=== PATIENT | male | born 1970 | race Caucasian/White ===

== ENCOUNTER 2020-11-06 12:33 | Emergency (ER) | payer BC, SELFPAY ==
[2020-11-06 12:35] VITALS: BP 120/83; PULSE 78; RESP 18; TEMP 36.7; O2SAT 99; BMI 40.6
--- NOTE | 2020-11-06 12:36 | XR_ITS ---
PROCEDURE: XR CHEST PORTABLE CLINICAL HISTORY: paresthesia COMPARISON: CR,CT CXR CHEST(2 VIEWS-NOT PORTABLE) from 12/13/2012 FINDINGS: The cardiomediastinal silhouette and pulmonary vascularity are within normal limits. The lungs are clear without infiltrates, suspicious nodules, or pleural effusions. No acute bony abnormalities. IMPRESSION: No acute finding Dictated by: Rodrigo Gasca MD 11/06/2020 13:05 Rodrigo Gasca MD in [place] 11/06/2020 13:05
--- NOTE | 2020-11-06 12:36 | HMH.EDGENADL ---
ED Disposition Clinical Impression: Hypertensive urgency, Perioral numbness, Paresthesia of left arm and leg Disposition: Home, Self-Care Condition on Discharge: Good Referrals: Eve Jama MD [Primary Care Provider] - 11/07/20 (Call for follow-up appointment) Time of Disposition: 15:28 - Critical Care Critical Care Time: No Attestation: On , the high probability of a clinically significant, sudden or life threatening deterioration of the following system(s) required my full and direct attention, intervention and personal management. The time I documented below is in addition to time spent performing reported procedures but includes the following listed in this critical care notation. Medical Decision Making - Medical Records Medical records reviewed: Yes: I reviewed the patient's medical records. - Percy Inquiry Pt receiving controlled substance: No Vital Signs: 11/06/20 12:35 11/06/20 13:53 11/06/20 13:54 Temperature 98.0 F Temperature Source Oral Pulse Rate 69 76 Pulse Rate [Right] 78 Respiratory Rate 18 18 Blood Pressure 104/76 L 100/72 L Blood Pressure [Right Arm] 120/83 Blood Pressure Mean Blood Pressure Mean [Right Arm] 95 Blood Pressure Source Automatic Cuff 02 Sat by Pulse Oximetry 99 96 97 Oxygen Delivery Method Room Air 11/06/20 13:55 11/06/20 14:15 Temperature Temperature Source Pulse Rate 74 65 Pulse Rate [Right] Respiratory Rate 18 18 Blood Pressure 100/72 L 110/76 Blood Pressure [Right Arm] Blood Pressure Mean 79 Blood Pressure Mean [Right Arm] Blood Pressure Source 02 Sat by Pulse Oximetry 97 95 Oxygen Delivery Method - Lab Data Lab results reviewed: Yes: I reviewed the patient's lab results. Lab Results 11/06/20 12:48: WBC 7.5, RBC 5.32, Hgb 15.8, Hct 46.9, MCV 88.1, MCH 29.7, MCHC 33.8, RDW 13.5, Plt Count 205, MPV 9.8, Neut % (Auto) 63.9, Lymph % (Auto) 24.6, [place] % (Auto) 8.0, Eos % (Auto) 3.0, Baso % (Auto) 0.7, Neut # (Auto) 4.8, Lymph # (Auto) 1.9, [place] # (Auto) 0.6, Eos # (Auto) 0.2, Baso # (Auto) 0.1 11/06/20 12:48: Sodium 140, Potassium 3.9, Chloride 103, Carbon Dioxide 27, Anion Gap 13.9, BUN 14, Creatinine 1.20, Estimated GFR 64, Est GFR ( Amer) 78, Glucose 102 H, Calcium 9.7, Total Bilirubin 0.6, AST 38, ALT 27, Alkaline Phosphatase 73, Troponin I < 0.01, Total Protein 8.3 H, Albumin 4.9, Globulin 3.4 H, Albumin/Globulin Ratio 1.4 Result diagrams: 11/06/20 12:48 11/06/20 12:48 Orders (Tests/Meds): ORDERS Category Date Time Status Troponin I Q3H Lab 11/06/20 15:45 Ordered Troponin I Q3H Lab 11/06/20 18:45 Ordered - Radiology Data #1 Image(s): Chest Image Reviewed: Yes I have reviewed radiologist's interpretation Preliminary Findings: Normal/NAD - CT Data CT Scan: Head Time Received: 13:[address] Reviewed: Yes: I have reviewed the patient's CT results, I have viewed the radiologist's interpretation Preliminary Findings: Normal/NAD Findings Narrative: No acute intracranial pathology is appreciated. Patient is noted to have dense calcification of the left vertebral artery. - ECG Data Tracing #1 Normal sinus rhythm, 60 bpm, no ST depression or elevation, no ectopy, normal intervals. ECG initial impression date: 11/06/20 ECG initial impression time: 13:25 Medical Decision Narrative: 50yo M evaluated for hypertensive urgency and left-sided paresthesia. Patient's blood pressure is improved without any intervention. His paresthesias have improved at this time as well. Patient notes perioral numbness as well as his left-sided symptoms. CT scan is ordered and unremarkable. EKG is reviewed as above. Chest x-ray negative. Blood work is unremarkable. All results were discussed with patient at bedside. Encouraged patient follow with his PCP and likely vascular surgery referral secondary to his vertebral artery stenosis. In light of the patient's improved condition, he is appropriate stable for d
--- NOTE | 2020-11-06 12:54 | CT_ITS ---
PROCEDURE: CT HEAD/BRAIN WO CON CLINICAL INDICATION: stroke protocol Left arm numbness COMPARISON: No exams were available for comparison TECHNIQUE: Axial images obtained. All CT scans at the facility use one or more dose reduction, viz: automated exposure control, ma/kV adjustment per patient size (including targeted exams where dose is matched to indication, i.e. head), or iterative reconstruction technique. FINDINGS: No midline shift, mass effect, intracranial hemorrhage, hydrocephalus, or extra-axial fluid collection is evident. There is dense calcification of the left vertebral artery the calvarium has an unremarkable appearance. No mastoid effusion. There is severe opacification of the right ethmoid sinus and mild mucosal thickening of the right maxillary sinus. IMPRESSION: 1. No acute intracranial findings. 2. Dense calcification of the left vertebral artery. 3. Right ethmoid and maxillary sinus disease Dictated by: Rodrigo Gasca MD 11/06/2020 13:04 Rodrigo Gasca MD in [place] 11/06/2020 13:04
[2020-11-06 13:01] LABS: Basophils # 0.1 K/mm3 (0-0.2); Basophils % 0.7 % (0.1-2.0); Eosinophils # 0.2 K/mm3 (0.0-0.4); Hematocrit 46.9 % (42.0-52.0); Hemoglobin 15.8 g/dL (14.1-18.0); Lymphocytes # 1.9 K/mm3 (0.7-4.5); Lymphocytes % 24.6 % (10-50); Mean Corpuscular HGB Conc 33.8 g/dL (31.8-35.4); Mean Corpuscular Hemoglobin 29.7 pg (27.0-31.2); Mean Corpuscular Volume 88.1 fl (80-94); Mean Platelet Volume 9.8 fl (7.4-10.4); Monocytes # 0.6 K/mm3 (0.1-1.0); Neutrophils # 4.8 K/mm3 (1.8-7.8); Neutrophils % 63.9 % (37.0-80.0); Platelet Count 205 K/mm3 (142-424); Red Blood Count 5.32 M/mm3 (4.60-6.20); Red Cell Distribution Width 13.5 % (11.5-17.5); White Blood Count 7.5 K/mm3 (4.8-10.8)
[2020-11-06 13:02] LABS: Chloride 103 mmol/L (98-107); Potassium 3.9 mmoL/L (3.5-5.1); Sodium 140 mmol/L (136-145)
[2020-11-06 13:04] LABS: Alanine Aminotransferase 27 U/L (12-78); Aspartate Amino Transferase 38 U/L (17-59); Blood Urea Nitrogen 14 mg/dl (9-20); Estimated Glomerular Filt Rate 64 ml/min (>60); GFR (African American) 78 ML/MIN (>60)
[2020-11-06 13:05] LABS: Albumin Level 4.9 g/dl (3.5-5.0); Albumin/Globulin Ratio 1.4 (1.1-1.8); Alkaline Phosphatase 73 U/L (38-126); Anion Gap 13.9 mEq/L (5-15); Bilirubin,Total 0.6 mg/dl (0.2-1.3); Calcium 9.7 mg/dl (8.4-10.2); Carbon Dioxide 27 mmol/L (22.0-30.0); Globulin 3.4 g/dL (1.3-3.2); Glucose 102 mg/dl (74-100); Total Protein,Serum 8.3 g/dl (6.3-8.2)
--- NOTE | 2020-11-06 13:18 | ECG_ITS ---
APPROVED REPORT Exam: Resting ECG HR:68 bpm ECG Measurements Heart Rate 68 AXES NC 162 P 35 QRSd 84 QRS 13 QT 400 T 22 QTc 425 Conclusion Normal sinus rhythm Cannot rule out Anterior infarct, age undetermined Abnormal ECG Electronically signed by : Jaiden Bryson, 11/09/2020 14:00:24
[2020-11-06 13:19] LABS: Troponin I < 0.01 ng/ml (0.00-0.034)
[2020-11-06 13:53] VITALS: BP 104/76; PULSE 69; RESP 18; O2SAT 96
[2020-11-06 13:54] VITALS: BP 100/72; PULSE 76; O2SAT 97
[2020-11-06 13:55] VITALS: BP 100/72; PULSE 74; RESP 18; O2SAT 97
[2020-11-06 14:15] VITALS: BP 110/76; PULSE 65; RESP 18; O2SAT 95
[2020-11-06 16:15] VITALS: BP 115/85; PULSE 71; RESP 18; TEMP 36.8; O2SAT 98
[2020-11-06 16:17] LABS: Troponin I < 0.01 ng/ml (0.00-0.034)
== END 2020-11-06 16:10 | disposition home or self-care (01) ==
PROVIDERS: Emergency Provider Family Medicine; PCP Family Medicine
DX: I16.0 Hypertensive urgency (principal); Z86.73 Personal history of transient ischemic attack (TIA), and cerebral infarction without residual deficits; Z87.891 Personal history of nicotine dependence; Z79.899 Other long term (current) drug therapy
CPT/HCPCS: 36415; 70450; 71045; 80053; 84484; 85025; 93005; 99282

== ENCOUNTER → 2020-11-14 10:03 | Outpatient (CLI) | payer BC, SELFPAY ==
--- NOTE | 2020-11-14 | CA_ITS ---
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/CHUY Laterality: Bilateral Study Quality: Excellent Indications: Left sided numbness in arm and lip with tingling Risk Factors Hypertension: Hyperlipidemia Stroke Hx-stroke 2004 Doppler Spectral Velocity Analysis ECA (R) 92.80/20.20 cm/s ECA (L) 67.70/18.00 cm/s dICA (R) 53.10/23.90 cm/s dICA (L) 58.30/24.80 cm/s Celeste (R) 53.10/10.50 cm/s [place] (L) 60.80/22.30 cm/s pICA (R) 49.40/22.40 cm/s pICA (L) 60.00/22.30 cm/s dCCA (R) 95.10/35.10 cm/s dCCA (L) 76.30/26.20 cm/s pCCA (R) 102.70/28.90 cm/s pCCA (L) 77.80/26.90 cm/s Vert (R) 38.90/12.00 cm/s Vert (L) 39.70/15.00 cm/s Findings Duplex evaluation demonstrates stenosis of the right proximal internal carotid artery <20% with PSV <140 cm/sec, EDV <100 cm/sec, and IC/CC Ratio <4.0.Duplex evaluation demonstrates stenosis of the left proximal internal carotid artery <20% with PSV <140 cm/sec, EDV <100 cm/sec, and IC/CC Ratio <4.0. Bilateral Internal carotid arteries measure greater than 0.83cm with low velocities and waveforms throughout. Duplex evaluation demonstrates antegrade flow of the bilateral Vertebral Arteries. Conclusion Duplex evaluation demonstrates stenosis of the right proximal internal carotid artery <20% with PSV <140 cm/sec, EDV <100 cm/sec, and IC/CC Ratio <4.0.Duplex evaluation demonstrates stenosis of the left proximal internal carotid artery <20% with PSV <140 cm/sec, EDV <100 cm/sec, and IC/CC Ratio <4.0. Duplex evaluation demonstrates antegrade flow of the bilateral Vertebral Arteries. Electronically signed by : Rodrigo Gasca MD 11/14/2020 13:14:31
--- NOTE | 2020-11-14 10:11 | MR_ITS ---
PROCEDURE: MR HEAD/BRAIN WO/W CON CLINICAL INDICATION: TIA Hypertension, numbness on left side of body and face COMPARISON: CT CT HEAD/BRAIN WO CON from 11/06/2020 TECHNIQUE: Routine multiplanar multi echo sequences are performed without and with gadolinium enhancement. FINDINGS: No midline shift, mass effect, intracranial hemorrhage, hydrocephalus, or acute infarction is evident. The cerebellopontine angle cerebellum, midbrain and brainstem have an unremarkable appearance. No enhancing lesion evident.. A small T2 white matter hyperintensity is present in the left frontal lobe nonspecific. The pituitary, optic chiasm, corpus callosum, and craniocervical junction have an unremarkable appearance. There is minimal mucosal thickening of the paranasal sinuses. No mastoid effusion. IMPRESSION: Essentially negative MRI of the brain without and with contrast. Small non-specific T2 white matter hyperintensity is present in the left frontal lobe at 3 mm and may be due to small gliotic focus without enhancement or restricted diffusion. No acute infarction apparent Dictated by: Rodrigo Gasca MD 11/14/2020 13:28 Rodrigo Gasca MD in [place] 11/14/2020 13:28
== END ==
PROVIDERS: PCP Family Medicine; Visit Provider Family Medicine
DX: G45.9 Transient cerebral ischemic attack, unspecified (principal)
CPT/HCPCS: 70553; 93880; A9576

== ENCOUNTER 2022-05-13 15:22 | Day surgery (SDC) | payer BC, SELFPAY ==
[2022-05-13] VITALS (10 sets, daily range): BP systolic 124–165; BP diastolic 78–101; PULSE 69–92; RESP 16–20; TEMP 36.4–36.7; O2SAT 96–99; BMI 40.6
--- NOTE | 2022-05-13 15:30 | PC.NURSE ---
ED MD AT BEDSIDE FOR EVALUATION
--- NOTE | 2022-05-13 15:32 | XR_ITS ---
FINAL REPORT TECHNIQUE: Single view chest CLINICAL HISTORY: food bolus-- feels like something is stuck in throat COMPARISON: 11/06/2020 FINDINGS: A single view of the chest was obtained. Patient is status post median sternotomy. The heart and mediastinum are within normal limits. There is mild right base atelectasis or scarring. There is no pneumothorax. Osseous structures are unremarkable. IMPRESSION: Mild right base atelectasis or scarring. Reviewed, Interpreted and Dictated by Oneal Hartley III, MD Transcribed by Mona Lamar Authenticated and [facility]
--- NOTE | 2022-05-13 15:32 | HMH.EDGENADL ---
Discharge Plan Disposition Patient Disposition: Still a Patient Condition: Fair Chief Complaint: PAIN Referrals Follow up/Referrals: Eve Jama MD [Primary Care Provider] - See instructions Clinical Impressions Clinical Impression: Esophageal obstruction due to food impaction Discharge ED Provider: Cristiano Salgado General Adult HPI General Chief complaint: PAIN Stated complaint: Something stuck in throat while eating Time Seen by Provider: 05/13/22 15:40 History of Present Illness HPI narrative: Patient is a 51-year-old male who presents with concern for food bolus. Patient states that he was eating some chicken earlier today when he felt like something got stuck. He says that since then he was tried to drink some water but he feels like he is just been throwing everything up. He says he can feels like something is stuck. This happened approximately an hour prior to arrival. He does feel little bit nauseous. Pain does not radiate from that area. Denies any shortness of breath. Related Data Allergies Allergy/AdvReac Type Severity Reaction Status Date / Time No Known Allergies Allergy Unverified 07/15/17 14:29 [facility], [facility] Social History (Updated 05/13/22 @ 18:09 by Oneal Gorman MD) Smoking Status: Former smoker alcohol intake: current current occupational status: employed Travel in the last 8 weeks: None ROS Obtained: Yes All systems reviewed & no additional complaints except as documented A 14 point review of system was obtained and otherwise negative except per HPI Physical Exam General General appearance: alert and in no apparent distress Head Head exam: atraumatic, normocephalic and normal inspection Eye Eye exam: Present normal appearance, PERRL and EOMI ENT ENT exam: Present normal exam, normal oropharynx, mucous membranes moist, TM's normal bilaterally and normal external ear exam Neck Neck exam: Present normal inspection, full ROM and trachea midline; Absent meningismus or lymphadenopathy Chest Chest inspection: Present normal inspection and symmetric chest wall rise; Absent tenderness Respiratory Respiratory exam: Present normal lung sounds bilaterally; Absent respiratory distress Cardiovascular Cardiovascular exam: Present regular rate and normal rhythm; Absent JVD Abdominal Exam Abdominal exam: Present soft and normal bowel sounds; Absent distention, tenderness or guarding Extremities Exam Extremities exam: Present normal inspection, full ROM and normal capillary refill; Absent calf tenderness Back Exam Back exam: Present normal inspection; Absent tenderness Neurological Exam Neurological exam: Present alert and oriented X3 Psychiatric Psychiatric exam: Present normal affect and normal mood Skin Skin exam: Present warm, dry, intact and normal color Lymphatic Lymphatic Findings: no adenopathy Medical Decision Making Percy Inquiry Pt receiving controlled substance: No Vital Signs: 05/13/22 15:23 05/13/22 16:28 Temperature 97.8 F Temperature Source Oral Pulse Rate 80 Pulse Rate [Radial] 84 Respiratory Rate 20 Blood Pressure 130/92 H Blood Pressure [Right Arm] 129/101 H Blood Pressure Mean [Right Arm] 110 Blood Pressure Source [Right Arm] Automatic Cuff Blood Pressure Position [Right Arm] Sitting 02 Sat by Pulse Oximetry 99 96 Oxygen Delivery Method Room Air Room Air Lab Data Lab Results 05/13/22 17:35: WBC 10.0, RBC 5.40, Hgb 16.4, Hct 50.0, MCV 92.6, MCH 30.3, MCHC 32.8, RDW 13.5, Plt Count 241, MPV 9.3, Neut % (Auto) 76.2, Lymph % (Auto) 14.2, [place] % (Auto) 5.3, Eos % (Auto) 2.8, Baso % (Auto) 1.5, Neut # (Auto) 7.7, Lymph # (Auto) 1.4, [place] # (Auto) 0.5, Eos # (Auto) 0.3, Baso # (Auto) 0.2 05/13/22 17:35: Sodium 142, Potassium 4.3, Chloride 100, Carbon Dioxide 29, Anion Gap 17.3 H, BUN 16, Creatinine 1.10, Estimated Creat Clear 155, Estimated GFR 71, Est GFR ( Amer) 86, Glucose 99, Calcium 9.4, Total Bilirubin 0.5, AST 40, ALT 40, Mary
--- NOTE | 2022-05-13 15:34 | PC.NURSE ---
PT PROVIDED GINGERALE PER MD
--- NOTE | 2022-05-13 16:18 | PC.NURSE ---
ROUNDED ON PT, REPORTS NO CHANGE. NOTIFIED
--- NOTE | 2022-05-13 17:23 | PC.NURSE ---
SPOKE WITH PT HE IS STILL NOT ABLE TO KEEP ANYTHING DOWN HIS SALIVA CONTINUES TO COME UP!!! DR JACKMAN PAGED
--- NOTE | 2022-05-13 17:35 | PC.NURSE ---
Dr Salgado spoke with Dr Gorman, he advised to call OR team in for scope for food bolus, carla advised
--- NOTE | 2022-05-13 17:53 | PC.NURSE ---
PT PALCED IN GOWN, WARM BLANKET PROVIDED. CONSENT SIGNED FOR SURGERY
[2022-05-13 17:58] LABS: Basophils # 0.2 K/mm3 (0-0.2); Basophils % 1.5 % (0.1-2.0); Eosinophils # 0.3 K/mm3 (0.0-0.4); Eosinophils % 2.8 % (0.1-12.0); Hemoglobin 16.4 g/dL (14.1-18.0); Lymphocytes # 1.4 K/mm3 (0.7-4.5); Lymphocytes % 14.2 % (10-50); Mean Corpuscular HGB Conc 32.8 g/dL (31.8-35.4); Mean Corpuscular Hemoglobin 30.3 pg (27.0-31.2); Mean Corpuscular Volume 92.6 fl (80-94); Mean Platelet Volume 9.3 fl (7.4-10.4); Monocytes # 0.5 K/mm3 (0.1-1.0); Monocytes % 5.3 % (1.7-9.3); Neutrophils # 7.7 K/mm3 (1.8-7.8); Neutrophils % 76.2 % (37.0-80.0); Platelet Count 241 K/mm3 (142-424); Red Cell Distribution Width 13.5 % (11.5-17.5)
--- NOTE | 2022-05-13 17:59 | PC.NURSE ---
dr. chowdhury at BS
--- NOTE | 2022-05-13 17:59 | PC.NURSE ---
DR. JACKMAN AT BEDSIDE
[2022-05-13 18:03] LABS: Alanine Aminotransferase 40 U/L (12-78); Albumin Level 4.7 g/dl (3.5-5.0); Albumin/Globulin Ratio 1.2 (1.1-1.8); Alkaline Phosphatase 83 U/L (38-126); Anion Gap 17.3 mEq/L (5-15); Aspartate Amino Transferase 40 U/L (17-59); Bilirubin,Total 0.5 mg/dl (0.2-1.3); Blood Urea Nitrogen 16 mg/dl (9-20); Calcium 9.4 mg/dl (8.4-10.2); Carbon Dioxide 29 mmol/L (22.0-30.0); Chloride 100 mmol/L (98-107); Creatinine Clearance Estimated 155 mL/min (50-200); Estimated Glomerular Filt Rate 71 ml/min (>60); GFR (African American) 86 ML/MIN (>60); Globulin 3.8 g/dL (1.3-3.2); Glucose 99 mg/dl (74-100); Potassium 4.3 mmoL/L (3.5-5.1); Sodium 142 mmol/L (136-145); Total Protein,Serum 8.5 g/dl (6.3-8.2)
--- NOTE | 2022-05-13 18:05 | PC.NURSE ---
173: Spoke with David Roy CRNA to notify him of Dr. Gorman's request for EGD. 174: Spoke with Sue Pizano RN to notify her of Dr. Gorman's request for EGD. 174: Sue Pizano RN spoke with Cayetano Barreto technical service representative and notified her of Dr. Gorman's request for EGD.
--- NOTE | 2022-05-13 18:06 | P.CONS_ITS ---
History of Present Illness *Admission Date: 05/13/22 *Reason for visit:: Unable to swallow *History of present illness: Patient is a 51-year-old male who has a history of some heartburn type symptoms and has had occasional dysphagia which has been self-limited. However, today he was eating chicken at approximately 12;15 p.m. and felt as though it became stuck. He has been unable to swallow secretions. He presented to the emergency department and symptoms were refractory to nonsurgical management. Surgical consultation was obtained. [facility] Social History Smoking Status: Former smoker alcohol intake: current current occupational status: employed Travel in the last 8 weeks: None Meds Home Medications and Allergies New Prescriptions to Start Prescriptions: Allergies Allergy/AdvReac Type Severity Reaction Status Date / Time No Known Allergies Allergy Unverified 07/15/17 14:29 Exam (Inpt) Vital signs and Labs for Last 24 Hours: Temp Pulse Resp BP Pulse Ox 97.8 F 80 20 130/92 H 96 05/13/22 15:23 05/13/22 16:28 05/13/22 15:23 05/13/22 16:28 05/13/22 16:28 Laboratory Results - last 24 hr 05/13/22 17:35: WBC 10.0, RBC 5.40, Hgb 16.4, Hct 50.0, MCV 92.6, MCH 30.3, MCHC 32.8, RDW 13.5, Plt Count 241, MPV 9.3, Neut % (Auto) 76.2, Lymph % (Auto) 14.2, [place] % (Auto) 5.3, Eos % (Auto) 2.8, Baso % (Auto) 1.5, Neut # (Auto) 7.7, Lymph # (Auto) 1.4, [place] # (Auto) 0.5, Eos # (Auto) 0.3, Baso # (Auto) 0.2 I & O for Labs for Last 24 Hours: Intake & Output 05/11/22 05/12/22 05/13/22 05/14/22 11:59 11:59 11:59 11:59 Weight 300 lb Constitutional: no acute distress Comment:: Patient sitting on the side of the stretcher retching spitting up secretions. Head: Present normocephalic Neck: Present normal inspection Respiratory: Present able to speak in complete sentences Cardiac: Present Reg Rate and Rhythm GI: Present soft Rectal (male): Present deferred Results Labs Result diagrams: 05/13/22 17:35 Labs: Laboratory Results - last 24 hr 05/13/22 17:35: WBC 10.0, RBC 5.40, Hgb 16.4, Hct 50.0, MCV 92.6, MCH 30.3, MCHC 32.8, RDW 13.5, Plt Count 241, MPV 9.3, Neut % (Auto) 76.2, Lymph % (Auto) 14.2, [place] % (Auto) 5.3, Eos % (Auto) 2.8, Baso % (Auto) 1.5, Neut # (Auto) 7.7, Lymph # (Auto) 1.4, [place] # (Auto) 0.5, Eos # (Auto) 0.3, Baso # (Auto) 0.2 Assessment and Plan *Assessment and plan (1) Esophageal obstruction due to food impaction: Status: Acute Category: Medical Code(s): K22.2 - Esophageal obstruction; T18.128A - Food in esophagus causing other injury, initial encounter Plan Plan to proceed with urgent endoscopy
--- NOTE | 2022-05-13 18:06 | PC.NURSE ---
pt heaving and spitting up some small pieces of food, pt tried to drink again and it still felt like it was lodged, pt given wet washcloth, Dr chowdhury came in at that time and spoke with pt
--- NOTE | 2022-05-13 18:48 | HMH.SCOPE ---
Procedure: Date: 05/13/22 Patient Date of :: 1970 Procedure Performed:: Esophagogastroduodenoscopy Indications:: Patient is a 51-year-old male who has had a history of reflux symptoms and recently some self-limited dysphagia type symptoms where he feels food becomes stuck. However, today on 05/13 he was found to approximately 12:15 PM esophageal obstruction. His symptoms persisted and he was seen in the emergency department with symptoms. He was consulted and plan was made for EGD. Performing Provider:: Oneal Gorman MD Referring Provider:: SELENE GONZALEZ Sedation:: MAC SEDATION Procedure:: Patient was taken to the endoscopy procedure room. He was positioned in lateral decubitus position. Adequate intravenous sedation was achieved with anesthesia titration of propofol. Olympus endoscope was inserted via the oropharynx. Esophagus was cannulated. Endoscope was advanced. Salivary secretions were noted with evidence of food impaction in distal esophagus at GE junction. However, endoscopic lens irrigation was suboptimal. Endoscope was withdrawn and replaced with alternate endoscope which was reinserted. At this time there was noted to be a few food particles in the distal esophagus. Food impaction had spontaneously passed into the gastric lumen. There was evidence erosive esophagitis focally at the gastroesophageal junction and some exudate. There was a mucosal tear noted where the food was previously impacted but this appeared superficial. Endoscope was able to be advanced into the stomach and this was desufflated and the endoscope was withdrawn. Findings:: Evidence of resolved food impaction GE junction at 42 cm Focal erosive esophagitis Recommendations:: Patient should maintain proton pump inhibitors. I will have him on limited to clear liquid diet until 05/15/2022 then very soft diet. Likely repeat upper endoscopy electively for better evaluation once the inflammation healed. Complications:: None immediately apparent Estimated blood obtained (mL): 0
--- NOTE | 2022-05-13 18:57 | P.PN_ITS ---
[facility] Social History (Updated 05/13/22 @ 18:09 by Oneal Gorman MD) Smoking Status: Former smoker alcohol intake: current substance use type: denies use current occupational status: employed Travel in the last 8 weeks: None [facility] Anesthesia Checklist Patient Identification Patient Identification: Verbal (Name & ) Structural Data Admitted From: Home Planned Operative Procedure/s: egd Consent for Planned Operative Procedure(s) Verified: Yes NPO Status Verified Time NPO: 12:30 Airway Assessment C-Spine Mobility Assessed: Yes TMJ Mobility Assessed: Yes Dentition: Good Dentition Neurological Assessment Level of Consciousness: Awake, Alert and Appropriate Anesthesia Plan Anesthesia Risk discussed: Yes Anesthesia Plan: Verified ASA Class: II Anesthesia Type: MAC
== END 2022-05-13 19:29 | disposition home or self-care (01) ==
LOC: ER 18:28 → SDC 18:36
PROVIDERS: Emergency Provider Student in an Organized Health Care Education/Training Program; PCP Family Medicine; Visit Provider Surgery
PROC: 0DJ08ZZ Inspection of Upper Intestinal Tract, Via Natural or Artificial Opening Endoscopic (ICD-10-PCS; CPT 43235; principal; 2022-05-13 18:00)
DX: T18.128A Food in esophagus causing other injury, initial encounter (principal); K22.2 Esophageal obstruction; Z79.899 Other long term (current) drug therapy
CPT/HCPCS: 43235; 71045; 80053; 85025; J1610

== ENCOUNTER 2022-07-13 10:32 | Emergency (ER) | payer BC, SELFPAY ==
[2022-07-13 11:21] VITALS: BP 148/94; PULSE 96; RESP 16; TEMP 37.1; O2SAT 99; BMI 38.5
[2022-07-13 11:31] LABS: UTC Influenza A Antigen Negative (Negative)
[2022-07-13 11:32] LABS: UTC Influenza B Antigen Negative (Negative)
--- NOTE | 2022-07-13 11:53 | EXP.UTC ---
Discharge Plan Disposition Patient Disposition: Home, Self-Care Condition: Good Prescriptions Prescriptions: New benzonatate 100 mg capsule 100 mg PO TID PRN (Reason: cough) Qty: 30 0RF azithromycin 250 mg tablet See Rx Instructions .ROUTE .COMPLEX Qty: 6 0RF Rx Instructions: For 250 mg dose pack: take 500 mg today (day 1), then 250 mg for 4 days (days 2-5). Hold cholesterol medication while taking. No Action valsartan-hydrochlorothiazide 160-12.5 mg tablet 1 tab PO DAILY Referrals Follow up/Referrals: Eve Jama MD [Primary Care Provider] - See instructions Clinical Impressions Clinical Impression: Upper respiratory tract infection Instructions Patient Instructions: DI for Viral Upper Respiratory Infection -- Adult Discharge ED Provider: Connie Brooks [facility] HPI General Stated complaint: back pain, congestion,cough,fever Mode of Arrival: Ambulatory Source of Information: Patient Limitations: No Limitations Time Seen by Provider: 07/13/22 11:53 Description of Symptoms (Recalled from Triage Doc. by RN): pt comes in with c/o back pain, ongoing for many weeks. fever, cough, headache, chills began yesterday HEENT Symptoms (Recalled from RN notes): Yes Resp Symptoms (Recalled from RN notes): Yes Skin Symptoms (Recalled from RN notes): No MS Symptoms (Recalled from RN notes): Yes Functional Status (Recalled from RN notes): n/a Related Data Home Medications Medication Instructions Recorded Confirmed valsartan 160 1 tab PO DAILY Hypertension 05/13/22 05/13/22 mg-hydrochlorothiazide 12.5 mg tablet Previous Rx's Medication Instructions Recorded azithromycin 250 mg tablet See Rx Instructions PO .COMPLEX #6 07/13/22 tabs benzonatate 100 mg capsule 100 mg PO TID PRN cough #30 caps 07/13/22 Allergies Allergy/AdvReac Type Severity Reaction Status Date / Time No Known Allergies Allergy Verified 07/13/22 11:23 Worker's Comp Is this a Worker's Comp case?: No [facility] Disclaimer: The information contained in this section may have been updated after the patient was seen, as this information can be updated by other users. Social History (Updated 05/13/22 @ 18:58 by Sae Roy CRNA) Smoking Status: Former smoker alcohol intake: current substance use type: denies use current occupational status: employed Travel in the last 8 weeks: None ROS Obtained: Yes All systems reviewed & no additional complaints except as documented Constitutional Constitutional: Reports fatigue, Reports fever(s), Reports headache(s) and Reports malaise Eyes Eyes: Reports system reviewed and no additional complaints, except as documented ENT Ears, Nose, Mouth, and Throat: Reports headache(s), Reports nasal discharge, Reports post nasal drip and Reports sinus pressure Cardiovascular Cardiovascular: Reports system reviewed and no additional complaints, except as documented Respiratory Respiratory: Reports non-productive cough Gastrointestinal Gastrointestingal: Reports system reviewed and no additional complaints, except as documented Genitourinary Male Genitourinary: Reports system reviewed and no additional complaints, except as documented Musculoskeletal Comments: back pain right side Integumentary/Breasts Skin/Breast: Reports system reviewed and no additional complaints, except as documented Neurologic Neurologic: Reports system reviewed and no additional complaints, except as documented and Reports headache(s) Endocrine Endocrine: Reports fatigue Hematologic/Lymphatic Henatologic/Lymphatic: Reports system reviewed and no additional complaints, except as documented Allergic/Immunologic Allergic/Immunologic: Reports system reviewed and no additional complaints, except as documented Physical Exam General General appearance: alert and in no apparent distress Head Head exam: atraumatic and normocephalic Eye Eye exam: Present normal appearance ENT ENT exam: Present muco
[2022-07-13 12:09] VITALS: BP 148/94; PULSE 96; RESP 16; TEMP 37.1
== END 2022-07-13 12:14 | disposition home or self-care (01) ==
PROVIDERS: Emergency Provider Nurse Practitioner Family; PCP Family Medicine
DX: J06.9 Acute upper respiratory infection, unspecified (principal)
CPT/HCPCS: 87804; 99212; G0463

== ENCOUNTER 2024-03-10 11:11 | Emergency (ER) | payer BC, SELFPAY ==
--- NOTE | 2024-03-10 11:33 | EXP.UTC ---
Discharge Plan Disposition Patient Disposition: Home, Self-Care Condition: Good Prescriptions Prescriptions: New methylprednisolone 4 mg Tablets,Dose Pack 4 mg PO DIRECTED 6 Days Qty: 21 0RF Rx Instructions: Take 1 pack as directed for 6 days No Action valsartan-hydrochlorothiazide 160-12.5 mg tablet 1 tab PO DAILY Referrals Follow up/Referrals: Eve Jama MD [Primary Care Provider] - See instructions Activity Restrictions/Add. Instructions Additional Instructions/Restrictions: Rest the extremity. Take the medication as directed. Follow up with Dr. Phoenix (orthopedics) if you continue to have symptoms. I put in a referral but you need to call his office and schedule an appointment. Follow up with your regular doctor. GO TO THE ER FOR ANY WORSENING SYMPTOMS Clinical Impressions Clinical Impression: Pulled muscle, Left hip pain Stand Alone Forms Stand Alone Forms: Work/School Release Instructions Patient Instructions: Muscle Strain, DI for Muscle Strain Print Language Print Language: Moldovan Discharge ED Provider: Milton Armando [facility] General Stated complaint: L hip pain 02/22/2024 ao fell off horse Time Seen by Provider: 03/10/24 11:32 History of Present Illness Provider Complaint: He states that he has had left hip pain and pain in the front of his left thigh for the past 2 weeks. He states that he fell off of a horse before his pain started. He denies any other complaints or injuries. Related Data Home Medications ?Medication ?Instructions ?Recorded ?Confirmed valsartan 160 1 tab PO DAILY Hypertension 05/13/22 03/10/24 mg-hydrochlorothiazide 12.5 mg tablet Previous Rx's ?Medication ?Instructions ?Recorded methylprednisolone 4 mg tablets in 4 mg PO DIRECTED 6 days #21 tabs 03/10/24 a dose pack Allergies Allergy/AdvReac Type Severity Reaction Status Date / Time No Known Allergies Allergy Verified 01/30/23 11:45 [facility] Disclaimer: The information contained in this section may have been updated after the patient was seen, as this information can be updated by other users. Social History Smoking Status: Former smoker tobacco type: cigarettes alcohol intake: current substance use type: denies use current occupational status: employed Travel in the last 8 weeks: None ROS Obtained: Yes All systems reviewed & no additional complaints except as documented Constitutional Constitutional: Denies chills and Denies fever(s) Eyes Eyes: Denies eye discharge ENT Ears, Nose, Mouth, and Throat: Denies dizziness, Denies otalgia and Denies sore throat Cardiovascular Cardiovascular: Denies chest pain Respiratory Respiratory: Denies shortness of breath, Denies chest congestion, Denies cough, Denies stridor and Denies wheezing Gastrointestinal Gastrointestingal: Denies nausea or vomiting Musculoskeletal Musculoskeletal: Reports system reviewed and no additional complaints, except as documented and Denies arthralgias Integumentary/Breasts Skin/Breast: Denies rash Neurologic Neurologic: Denies dizziness and Denies paresthesias Allergic/Immunologic Allergic/Immunologic: Denies wheezing Physical Exam General General appearance: alert and in no apparent distress Head Head exam: atraumatic, normocephalic and normal inspection Eye Eye exam: Present normal appearance, PERRL and EOMI ENT ENT exam: Present normal exam, normal oropharynx, mucous membranes moist, TM's normal bilaterally and normal external ear exam Neck Neck exam: Present normal inspection, full ROM and trachea midline; Absent meningismus or lymphadenopathy Chest Chest inspection: Present normal inspection and symmetric chest wall rise; Absent tenderness Respiratory Respiratory exam: Present normal lung sounds bilaterally; Absent respiratory distress Cardiovascular Cardiovascular exam: Present regular rate and normal rhythm; Absent JVD Abdominal Exam Abdominal exam: Present soft and normal bowel sounds; Absent distention, tenderness or guarding Extremities Exam Extremities exam: Present normal inspection, full ROM and normal capillary refill; Absent calf tenderness Back Exam Back exam: Present normal inspection; Absent tenderness Neurological Exam Neurological exam: Present alert and oriented X3 Psychiatric Psychiatric exam: Present normal affect and normal mood Skin Skin exam: Present warm, dry, intact and normal color Lymphatic Lymphatic Findings: no adenopathy Medical Decision Making Medical Records Medical records reviewed: No I reviewed the patient's medical records. Percy Inquiry Pt receiving controlled substance: No
--- NOTE | 2024-03-10 11:35 | XR_ITS ---
FINAL REPORT CLINICAL HISTORY: fell off horse in January, c/o intermittent pain that has worsened COMPARISON: None FINDINGS: LEFT FEMUR: 4 images of the left femur were obtained. There is no evidence of fracture or dislocation. Mild degenerative change is noted at both the hip and the knee. There is no soft tissue abnormality identified. IMPRESSION: Mild degenerative changes at both the hip and the knee, without acute bony abnormality. Reviewed, Interpreted and Dictated by Oneal Hartley III, MD Transcribed by Hilaria Palacios Authenticated and . [facility]
--- NOTE | 2024-03-10 11:35 | XR_ITS ---
FINAL REPORT CLINICAL HISTORY: fell off horse in January c/o intermittent pain COMPARISON: None FINDINGS: LEFT HIP: Two views of the left hip demonstrate no acute fracture or dislocation. There is an abnormal appearance of the left femoral neck, favor a chronic fracture. If clinically indicated MRI might be helpful. Mild degenerative changes present. The visualized bony structures are well aligned. Postoperative changes from a right hernia repair are noted. IMPRESSION: Abnormal appearance of the left femoral neck, favor a chronic fracture. If clinically indicated MRI might be helpful. Reviewed, Interpreted and Dictated by Oneal Hartley III, MD Transcribed by Hilaria Palacios Authenticated and [facility]
[2024-03-10 11:40] VITALS: BP 117/81; PULSE 75; RESP 20; TEMP 36.8; O2SAT 98; BMI 38.0
[2024-03-10 12:54] VITALS: BP 117/81; PULSE 75; RESP 20; TEMP 36.8; O2SAT 98
--- NOTE | 2024-03-12 08:42 | PC.NURSE ---
Spoke with patient regarding xray results. Educated on need for follow up with ortho.
== END 2024-03-10 13:05 | disposition home or self-care (01) ==
PROVIDERS: Emergency Provider Nurse Practitioner Family; PCP Family Medicine
DX: M25.552 Pain in left hip (principal); S76.912A Strain of unspecified muscles, fascia and tendons at thigh level, left thigh, initial encounter; V80.010A Animal-rider injured by fall from or being thrown from horse in noncollision accident, initial encounter
CPT/HCPCS: 73502; 73552; 99212; 99214; G0463

== ENCOUNTER 2024-04-06 17:38 | Outpatient (CLI) | payer BC, SELFPAY ==
--- NOTE | 2024-04-06 17:38 | MR_ITS ---
PROCEDURE INFORMATION: Exam: MR Left Lower Extremity Joint Without Contrast; Hip Exam date and time: 04/06/2024 5:49 PM Age: 53 years old Clinical indication: Patient HX: Left hip pain possible fracture after falling off of horse in January 2024; Additional info: Hip fracture TECHNIQUE: Imaging protocol: Magnetic resonance imaging of the left lower extremity joint without contrast. Exam focused on the hip. 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 No acute fracture in the hips or pelvis. Minimal osteoarthritis. Labrum: Unremarkable. No tear. TENDONS: Tendons of iliopsoas group: Unremarkable. No evidence of tear. Tendons of medial compartment of thigh: Unremarkable. No evidence of tear. Tendons of lateral rotators of hip: Unremarkable. No evidence of tear. Tendons of gluteal group: Unremarkable. No evidence of tear. Soft tissues: Small amount of fluid and limited edema surrounds the left fascial janet lateral to the left greater trochanter with limited soft tissue injury suggested here. There is not a significant hematoma. IMPRESSION: 1. 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 No acute fracture in the hips or pelvis. 2. Small amount of fluid and limited edema surrounds the left fascia janet lateral to the left greater trochanter with limited soft tissue injury suggested here. There is not a significant hematoma.
== END 2024-04-06 23:59 | disposition home or self-care (01) ==
LOC: RAD 17:38
PROVIDERS: PCP Family Medicine; Visit Provider Physician Assistant
DX: M84.353A Stress fracture, unspecified femur, initial encounter for fracture (principal)
CPT/HCPCS: 73721

== ENCOUNTER 2024-10-27 21:19 | Emergency (ER) | payer BC, SELFPAY ==
[2024-10-27 21:30] VITALS: BP 143/88; PULSE 84; RESP 18; TEMP 36.9; O2SAT 97; BMI 40.7
[2024-10-27 22:09] VITALS: BP 140/80; PULSE 81; RESP 20; TEMP 36.7; O2SAT 95
--- NOTE | 2024-10-27 22:09 | HMH.EDGENADL ---
Discharge Plan Disposition Patient Disposition: Home, Self-Care Prescriptions Prescriptions: No Action valsartan-hydrochlorothiazide 160-12.5 mg tablet 1 tab PO DAILY methylprednisolone 4 mg Tablets,Dose Pack 4 mg PO DIRECTED 6 Days Qty: 21 0RF Rx Instructions: Take 1 pack as directed for 6 days Referrals Follow up/Referrals: Eve Jama MD [Primary Care Provider] - See instructions Activity Restrictions/Add. Instructions Additional Instructions/Restrictions: At this time it was felt you are safe to be discharged home. If new or worsening symptoms please do not hesitate to return the emergency department. Please apply the erythromycin ointment to your inferior lid as shown 3 times a day for 5 days. If your symptoms are persisting and you do not have any new symptoms then please follow-up with Dr. Cardona as discussed. Clinical Impressions Clinical Impression: Conjunctivitis Print Language Print Language: Yi Discharge ED Provider: Zacarias Mcgrath General Adult HPI General Chief complaint: Eye Problems Stated complaint: sharp pains in left eye Time Seen by Provider: 10/27/24 21:48 Mode of Arrival: Ambulatory Source of Information: Patient Description of Symptoms (Recalled from ER Triage Doc. by RN): patient states this afternoon his left eye started hurting he says it feels like someone rubbing needles on it and mclain the pain is intermitment. also has blurry vision in that eye History of Present Illness HPI narrative: Patient is a 54-year-old male with past medical history of previous foreign body in the left eye who presents emergency department for evaluation of eye burning on the left. 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 He has had intermittent burning sensation in his left eye. States he does not have any vision changes to me. No trauma. No contacts. No other acute complaints at this time. Please note that above description of symptoms, in this electronic medical record under categorization of recalled from ER triage doctor by RN are reflective of an initial nursing assessment, however, is not reflective of my full history and physical exam that was personally taken and clarified. Consequentially, this preceding description of symptoms, which may include the patient's categorized chief complaint in the EMR, do not reflect my personal clinical impression, and the ultimate description of history of present illness and patient stated complaints should be deferred to this section of the note. Unless stated otherwise or congruent with this section of the note, additional signs, symptoms, or incongruence should be interpreted as inaccurate with my clinical impression. Related Data Home Medications ?Medication ?Instructions ?Recorded ?Confirmed valsartan 160 1 tab PO DAILY Hypertension 05/13/22 04/08/24 mg-hydrochlorothiazide 12.5 mg tablet Previous Rx's ?Medication ?Instructions ?Recorded methylprednisolone 4 mg tablets in 4 mg PO DIRECTED 6 days #21 tabs 03/10/24 a dose pack Allergies Allergy/AdvReac Type Severity Reaction Status Date / Time No Known Allergies Allergy Verified 04/08/24 13:07 [facility] Disclaimer: The information contained in this section may have been updated after the patient was seen, as this information can be updated by other users. Social History Smoking Status: Former smoker tobacco type: cigarettes alcohol intake: current substance use type: denies use current occupational status: employed Travel in the last 8 weeks: None Have you lived/traveled outside US in past 30 days?: No Contact w/someone who lives/traveled outside US past 30 days?: No Exposure to someone with infectious disease in past 14 days?: No Do you have a fever (greater than 100.4 F or 38 C)?: No Have you tested positive for COVID-19: No Exposed to someone with COVID-19 in past 14 days?: No Do you have a sore throat?: No Do you have a cough?: No Do you have any weakness?: No Do you have any diarrhea?: No Are you experiencing any unusual bleeding?: No Do you have any muscle aches/pain?: No Do you have any abdominal pain?: No Are you experiencing loss of taste or smell?: No Other Medical History Have you received the Flu Vaccine for this season: No Have you received the Pneumonia Vaccine: No ROS Obtained: Yes Systems reviewed as appropriate & no additional complaints except as documented Physical Exam General General appearance: alert and in no apparent distress Head Head exam: atraumatic and normocephalic Eye Eye exam: Present PERRL, EOMI and conjunctival redness ENT ENT exam: Present mucous membranes moist Neck Neck exam: Present normal inspection Chest Chest inspection: Present normal inspection and symmetric chest wall rise Respiratory Respiratory exam: Absent respiratory distress Cardiovascular Cardiovascular exam: Present regular rate and normal rhythm Extremities Exam Extremities exam: Present normal inspection Neurological Exam Neurological exam: Present alert, oriented X3 and CN II-XII intact; Absent motor sensory deficit Psychiatric Psychiatric exam: Present normal affect Skin Skin exam: Present warm and dry Medical Decision Making Medical Records Screening: Per USPSTF and CDC recommendations, given the prevalence of disease in our region, it is our hospital?s policy to screen for HIV and viral Hepatitis for all patients aged 18 and over and those with ongoing risk factors. Percy Inquiry Pt receiving controlled substance: No Vital Signs: 10/27/24 21:30 Temperature 98.4 F Temperature Source Oral Pulse Rate [Right] 84 Respiratory Rate 18 Blood Pressure [Right Arm] 143/88 H Blood Pressure Mean [Right Arm] 106 Blood Pressure Source [Right Arm] Automatic Cuff Blood Pressure Position [Right Arm] Sitting 02 Sat by Pulse Oximetry 97 Oxygen Delivery Method Room Air Medical Decision Narrative: In summary patient is a 54-year-old male past medical history described above presents emergency department for evaluation of left eye burning. Patient is hemodynamically stable nontoxic-appearing upon arrival, afebrile. With his left eye pain, he does not have any vision changes just pain therefore no concern for CRAO retinal detachment or retinal vein thrombosis. Intraocular pressure performed and is 12 on both eyes no concern for acute angle-closure glaucoma. Fluorescein uptake negative. His history of ocular foreign body is 15 years ago and he has no new trauma to suggest ocular foreign body. He has had MRIs in the meantime of his head I would suspect if there was a missed retained metal foreign body it would have become apparent at that time. Patient also has a negative neurologic exam and no concern for CVA. Given this patient likely has conjunctivitis and clinically has conjunctival injection with a normal intraocular pressure no vision changes. Given this erythromycin ointment was applied and patient will apply it for 5 days and follow-up with Dr. Cardona on an outpatient basis and was given return precautions verbalized understanding. Procedure: Procedure performed was fluorescein exam. Procedure performed by Zacarias Mcgrath. Topical tetracaine was applied to the eye, fluorescein uptake negative. No foreign body identified lid everted no concern for hordeolum or chalazion, Tanya negative. Patient tolerated the procedure well. There were no immediate complications. Critical Care Critical Care Time Critical Care Time: No
== END 2024-10-27 22:13 | disposition home or self-care (01) ==
PROVIDERS: Emergency Provider Emergency Medicine; PCP Family Medicine
DX: H10.32 Unspecified acute conjunctivitis, left eye (principal); H57.12 Ocular pain, left eye
CPT/HCPCS: 99282

== ENCOUNTER → 2025-05-10 20:04 | Outpatient (CLI) | payer BC, SELFPAY ==
--- OUTSIDE RECORDS SUMMARY | 2025-05-10 20:08 | XMS_ITS | Data Portability ---
Author Organization [facility] RYANNE Robertson [place] [facility] Address [address] [place] [address] Assessment Encounter Date Assessment Date Assessment LastModified by Organization Details LastModified Time 03/15/2021 03/15/2021 1. Chronic sensation change, left arm and leg Plan 1. I did not establish plan at this visit at chart review, I concluded that I did not identify if this is chronic old sensation loss, or if this is new episodic sensation loss I will make phone contact with patient to clarify this question and decide on plan [email or web address] Not available 04/22/2021 14:06:18 Plan of Treatment Reminders Order Date Submit Date Provider Last Modified By Organization Details Last Modified Time Details Appointments None record ed. Lab None record ed. Referral None record ed. Procedures None record ed. Surgeries None record ed. Imaging None record ed. Medication Orders None record ed. Patient TargetsNo targets recorded. Patient InstructionsNo instructions recorded. Reason for Referral None Reported. Problems No Known Problems Procedures Surgical History Date Name Laterality Status Provider Name and Address Organization Details Recorded Time Tonsillectomy completed [facility] 03/15/2021 09:32:36 Hernia Repair completed [facility] [place] 03/15/2021 09:32:44 Imaging Results None recorded. Procedure Notes None recorded. Medical Equipment None Reported. Allergies No known drug allergies Medications Name Sig Start Date Stop Date Status Note LastModified by Organization Details LastModified Time Diovan HCT 160 mg-12.5 mg tablet Daily active Freque ncy: daily; Medica tion Descri ption: hydroc hlorot hiazid e-vals armani; Dosage :1; Route: oral; refill s:0 Not Available Not Available Not Available Vitals Date Recorded Body weight Body mass index (BMI) Body height Systolic And Diastolic Provider Name and Address Organization Details Last Updated DateTime 03/15/2021 651146.16 g 41 kg/m2 180.34 cm 134/92 mm[Hg] Macie Rodriguez [facility] 03/15/2021 09:25:43 Social History Question Answer Notes LastModified by Closely Details LastModified Time Tobacco Smoking Status Never Smoker Macie Rodriguez null, [facility] 03/15/2021 09:32:25 What Was The Date Of Your Most Recent Tobacco Screening? 03/15/2021 Information not available 03/15/2021 What Is Your Relationship Status? Information not available 03/15/2021 Has Tobacco Cessation Counseling Been Provided? No Information not available 03/15/2021 Sex: Unknown Functional Status Question Answer Note LastModified by Closely Details LastModified Time Do you use any illicit or recreational drugs? No Information not available 03/15/2021 Do you or have you ever used any other forms of tobacco or nicotine? No Information not available 03/15/2021 What is your level of alcohol consumption? None Information not available 03/15/2021 Mental Status None recorded. Family History Relationship Description Onset Age of this Age Resolved Age Notes LastModified by Organization Details LastModified Time Mother Hypertensive disorder Not available 03/15 09:31:01 Mother Cerebrovascu lar accident Not available 09:31:36 Unspecified Relation Heart disease grandf ather Not available 03/15/2021 09:31:17 Unspecified Relation Cerebrovascu lar accident grandm other Not available 03/15/2021 09:31:36 Unspecified Relation Family history of malignant neoplasm grandm other Not available 03/15/2021 09:31:49 Unspecified Relation Obesity grandm other Not available 03/15/2021 09:32:07 Medical History Condition Response Arthritis Y Stroke Y Hypertension Y Immunizations Vaccine Type Date Status Note Provider Nam e and Address Organization Details Recorded Time SARS-COV-2 (COVID-19) vaccine, UNSPECIFIED 09/25/2020 completed Macie ramirez, [facility] 03/15/2021 09:30:40 SARS-COV-2 (COVID-19) vaccine, UNSPECIFIED 10/25/2020 completed Macie ramirez, [facility] 03/15/2021 09:30:46 Past Encounters Encounter ID Performer Location Encounter Start Date Encounter Closed Date Diagnosis/Indication Diagnosis SNOMED-CT Code Diagnosis ICD10 Code Diagnosis IMO Codes Diagnosis Note [id number] JANIE CHASE MD [facility]UR[facility] [place] [facility] [address] [place] [id number] 03/15/2021 09:02:27 03/15/2021 10:45:05 Paresthesia 12778431 R20.2 Health Concerns Section Related Observation LastModified by Organization Detai ls LastModified Time None Recorded Concern Status LastModified by Organization Details LastModified Time None Recorded Advance Directives Directive None Recorded Payers Insurance Date Sequence Insurance Name Policy Number Policy Li Covered Member ID Il Member ID Guarantor Name 03/27/2021 1 [employer] [id number] [place] Bob [id number] [place] Bob Notes Date Note Type Note Provider Name and Address Organization Details Recorded Time 03/15/2021 text/html initial year old jama at the request of Dr. Cayetano Jama cc: numbness onset 15 years ago, 36 years old after stroke initially lost feeling in the entire left side of his facelips and mouth says facial feeling has come back left arm and hand feels like they are going to sleepsometimes in legsays no pain, just tingling numbness never on the right side says the higher his blood pressure the worse it gets JANIE CHASE MD [facility] [place], [id number], [facility] 04/22/2021 14:06:36
== END ==
LOC: SL 20:07
PROVIDERS: PCP Family Medicine; Visit Provider Family Medicine
DX: G47.39 Other sleep apnea (principal); E66.9 Obesity, unspecified